=== PATIENT | female | born 1960 | race Caucasian/White ===

== ENCOUNTER 2023-03-17 11:20 | Emergency (ER) | payer OTHER, SELFPAY ==
[2023-03-17] VITALS (12 sets, daily range): BP systolic 177–214; BP diastolic 75–98; PULSE 92–117; RESP 11–18; TEMP 37.1; O2SAT 97–99; BMI 27.4
[2023-03-17 11:53] LABS: Add Manual Diff / Slide Review NO; Basophils Absolute Auto 100 /uL (0-100); Basophils Percent Auto 0.7 % (0-2); Eosinophils Absolute Auto 0 /uL (0-450); Eosinophils Percent Auto 0.2 % (2-4); Hematocrit 39.4 % (36-46); Hemoglobin 13.8 g/dL (12.0-16.0); Lymphocytes Absolute Auto 1400 /uL (1100-4500); Lymphocytes Percent Auto 11.3 % (25-40); Mean Corpuscular Hemoglobin 32.2 PG (26-34); Mean Corpuscular Volume 92.1 fL (80-100); Monocytes Absolute Auto 700 /uL (0-900); Monocytes Percent Auto 5.5 % (3-14); Neutrophils Absolute Auto 10300 /uL (1500-7000); Neutrophils Percent Auto 82.3 % (50-75); Platelet Count 282 X10^3/uL (150-400); Red Blood Cell Count 4.28 X10^6/uL (4.0-5.2); Red Cell Distribution Width 13.5 % (11.6-14.8); White Blood Cell Count 12.6 X10^3/uL (4.5-11.0)
[2023-03-17 12:05] LABS: Alanine Aminotransferase 18 IU/L (<35); Albumin 4.9 g/dL (3.5-5.0); Albumin Globulin Ratio 1.3 (1.0-2.8); Alkaline Phosphatase 100 U/L (38-126); Aspartate Aminotransferase 21 IU/L (14-36); BUN Creatinine Ratio 12.5 (6-22); Bilirubin Total 0.9 mg/dL (0.2-1.3); Blood Urea Nitrogen 6 mg/dL (7-17); Calcium 9.6 mg/dL (8.4-10.2); Carbon Dioxide 26 mmol/L (22-32); Chloride 100 mmol/L (98-107); Estimated Glomerular Filt Rate > 60 mL/min (>60); Globulin 3.7 g/dL (1.7-4.1); Glucose 115 mg/dL (80-110); HEMOLYSIS < 15 (0-50); Lipase 50 U/L (23-300); Potassium 3.5 mmol/L (3.4-5.1); Sodium 136 mmol/L (137-145); Total Protein 8.6 g/dL (6.3-8.2)
[2023-03-17] MEDS: SODIUM CHLORIDE 0.9% 1,000 ML 1000 ML IV (12:32)
--- NOTE | 2023-03-17 13:04 | DI.CT.S_ITS ---
PROCEDURE: CT ABDOMEN PELVIS W CON INDICATIONS: colitis, nephrolithiasis? generalized pelvic pain TECHNIQUE: After the administration of intravenous contrast, axial sections acquired from the lung bases to the pubic symphysis. Coronal and sagittal reformats were performed. For radiation dose reduction, the following was used: automated exposure control, adjustment of mA and/or kV according to patient size. COMPARISON: None. FINDINGS: Image quality: Excellent. Lung bases: Lung bases are clear. Heart: No significant findings. ABDOMEN: Liver: There is a 1.2 cm lateral segment left hepatic lobe hypodensity measuring near fluid attenuation. This likely represents a hepatic cyst. Gallbladder: Unremarkable. Biliary ducts: Unremarkable. Pancreas: Unremarkable. Spleen: Unremarkable. Adrenal Glands: Unremarkable. Kidneys and Ureters: Kidneys are symmetric in size and enhancement, and there is no obstructive uropathy. No perinephric inflammatory changes. Ureters are normal in course and caliber. There is a 2.0 cm mid right renal hypodensity measuring near fluid attenuation. This likely represents a renal cyst. Stomach and Bowel: Stomach and small bowel loops are unremarkable. Scant distal colonic diverticula with acute inflammatory changes involving the distal sigmoid colon. Moderate inflammatory changes and wall thickening. No evidence for perforation or abscess formation. Peritoneum: No abnormal intraperitoneal fluid. No free air. Ventral Wall: There is a fat-containing umbilical hernia without acute inflammation. Abdominal Nodes: No retroperitoneal or mesenteric adenopathy by size criteria. Vessels: Aorta and inferior vena cava are normal in size. PELVIS: Pelvic Organs: Unremarkable. Bladder: Unremarkable. Pelvic Nodes: No enlarged lymph nodes. Miscellaneous: No inguinal hernias are seen. Bones: Unremarkable. IMPRESSION: Distal sigmoid acute diverticulitis/colitis without evidence for perforation or abscess formation. Consider direct visualization after resolution of acute findings to exclude possible underlying neoplastic process. Dictated by: Adrian Magana M.D. on 03/17/2023 at 13:57 Approved by: Adrian Magana M.D. on 03/17/2023 at 14:03
--- NOTE | 2023-03-17 13:05 | ED_ITS ---
HPI - Abdominal Pain General Chief Complaint: Abdominal Pain Stated Complaint: tender Lower ABD pain T-10 Time Seen by Provider: 03/17/23 12:15 Source: patient Mode of arrival: Ambulatory History of Present Illness HPI narrative: This female emergency department of 3 days of worsening generalized pelvic and lower abdominal pain. She denies fever, chills, endorses a history of hypertension and recent UTI with treatment of Macrobid on December 28 states that she ate a scalp on March 06 and had violent illness that night, vomiting and diarrhea, states that she resolved from, but since has dyspepsia, mucousy stools, states they have been loose and not formed, states that she typically does not have formed stool. Denies fever, recent vomiting, denies nausea, denies any blood in her stool, denies hematuria, endorses new lower back pain bilaterally. She denies history of abdominal surgery, denies upper respiratory symptoms. Denies chills. Related Data Previous Rx's Medication Instructions Recorded ciprofloxacin HCl 500 mg tablet 500 mg PO BID 10 days #20 tabs 03/17/23 metronidazole 500 mg tablet 500 mg PO TID 10 days #30 tabs 03/17/23 ondansetron 4 mg disintegrating 4 mg PO Q8H PRN nausea and 03/17/23 tablet vomiting #10 tabs Allergies Allergy/AdvReac Type Severity Reaction Status Date / Time Sulfa (Sulfonamide Allergy Verified 03/17/23 11:30 Antibiotics) Review of Systems Review of Systems ROS Unobtainable: All systems reviewed & are unremarkable except as noted in HPI and below Patient History Social History Smoking Status: Never smoker Smoking Status: Never smoker alcohol intake frequency: holidays/special occasions only Substance Use Type: does not use Exam Narrative Exam Narrative: Reviewed vitals signs and nursing notes. General: Pleasant, sitting upright, in no acute distress, well groomed, afebrile HEENT: symmetrical facial expressions, moist mucous membranes, neck is supple CV: regular rate and rhythm, warm extremities Respiratory: normal work of breathing, without tachypnea or hypoxia. GI: abdomen soft, nondistended, without CVA tenderness bilaterally, generalized lower back pain bilaterally over the soft tissue, tenderness across her lower abdomen and pelvis, no rebound tenderness, negative for pain over her McBurney's point, negative Mosquera's sign MSK: moves all extremities, no weakness, normal tone, ambulatory without deficit Skin: brisk capillary refill, without rash or wound Neuro: clear speech and normal cognition, A&O x3, GCS 15, no focal motor or sensation deficits Initial Vital Signs Initial Vital Signs: Vital Signs Pulse Rate 115 H 03/17/23 11:27 Pulse Oximetry 98 03/17/23 11:27 Course Orders Ordered: ED Orders 03/17/23 11:34 Complete Blood Count AUTO DIFF Stat Comprehensive Metabolic Panel Stat Lipase Stat 03/17/23 11:35 EKG-12 Lead Stat 03/17/23 12:40 Urine Microscopic Stat 03/17/23 13:04 CT abdomen pelvis w con Stat Discontinued Medications Ciprofloxacin (Ciprofloxacin 250 Mg Tablet) 500 mg PO NOW ONE Stop: 03/17/23 14:22 Last Admin: 03/17/23 14:26 Dose: 500 mg Documented By: KATHLEEN Sodium Chloride (Normal Saline 0.9%) 1,000 mls @ 1,000 mls/hr IV BOLUS ONE Stop: 03/17/23 13:23 Last Infusion: 03/17/23 14:26 Dose: 0 mls/hr Documented By: Admin: 03/17/23 12:32 Dose: 1,000 mls/hr Documented By: KATHLEEN Ketorolac Tromethamine (Ketorolac 30 Mg/Ml Vial) 15 mg IV NOW ONE Stop: 03/17/23 12:25 Last Admin: 03/17/23 12:42 Dose: Not Given Documented By: KATHLEEN Metronidazole (Metronidazole 500 Mg Tablet) 500 mg PO NOW ONE Stop: 03/17/23 14:22 Last Admin: 03/17/23 14:26 Dose: 500 mg Documented By: KATHLEEN Ondansetron HCl (Ondansetron 4 Mg/2 Ml Inj) 4 mg IV NOW PRN PRN Reason: Nausea And Vomiting Vital Signs Vital signs: Vital Signs - 8 hr 03/17/23 11:30 03/17/23 11:27 03/17/23 11:28 Temperature 98.7 F Pulse Rate 117 H 115 H 113 H Respiratory Rate 18 Blood Pressure 214/98 H Pulse Oximetry 98 98 98 Oxygen Delivery Method Room Air 03/17/23 11:28 03/17/23 11:30 03/17/23 11:31 Temperature Pulse Rate 112 H Respiratory Rate 18 Blood Pressure 214/98 H 206/88 H Pulse Oximetry 99 Oxygen Delivery Method 03/17/23 11:31 03/17/23 12:00 03/17/23 12:00 Temperature Pulse Rate 114 H 100 H Respiratory Rate 18 Blood Pressure 197/84 H Pulse Oximetry 98 99 Oxygen Delivery Method 03/17/23 12:30 03/17/23 12:30 03/17/23 12:45 Temperature Pulse Rate 102 H 105 H Respiratory Rate 15 Blood Pressure 182/80 H Pulse Oximetry 98 98 Oxygen Delivery Method 03/17/23 12:45 03/17/23 13:00 03/17/23 13:00 Temperature Pulse Rate 100 H Respiratory Rate 15 Blood Pressure 192/82 H 177/77 H Pulse Oximetry 97 Oxygen Delivery Method 03/17/23 13:30 03/17/23 14:00 03/17/23 14:30 Temperature Pulse Rate 94 H 92 H 97 H Respiratory Rate 15 14 11 L Blood Pressure Pulse Oximetry 97 97 97 Oxygen Delivery Method 03/17/23 14:42 Temperature Pulse Rate 102 H Respiratory Rate Blood Pressure 177/75 H Pulse Oximetry 97 Oxygen Delivery Method Room Air MDM - Abdominal Pain Lab Data 03/17/23 11:34 03/17/23 11:34 Labs: Lab Results 03/17/23 03/17/23 03/17/23 Range/Units 11:34 11:34 12:40 WBC 12.6 H (4.5-11.0) X10^3/uL RBC 4.28 (4.0-5.2) X10^6/uL Hgb 13.8 (12.0-16.0) g/dL Hct 39.4 (36-46) % MCV 92.1 (80-100) fL MCH 32.2 (26-34) PG MCHC 35.0 (30-36) % RDW 13.5 (11.6-14.8) % Plt Count 282 (150-400) X10^3/uL Neut % (Auto) 82.3 H (50-75) % Lymph % (Auto) 11.3 L (25-40) % [place] % (Auto) 5.5 (3-14) % Eos % (Auto) 0.2 L (2-4) % Baso % (Auto) 0.7 (0-2) % Neut # (Auto) 26055 H (6002-7105) /uL Lymph # (Auto) 1400 (9686-6744) /uL [place] # (Auto) 700 (0-900) /uL Eos # (Auto) 0 (0-450) /uL Baso # (Auto) 100 (0-100) /uL Sodium 136 L (137-145) mmol/L Potassium 3.5 (3.4-5.1) mmol/L Chloride 100 (98-107) mmol/L Carbon Dioxide 26 (22-32) mmol/L BUN 6 L (7-17) mg/dL Creatinine 0.48 L (0.52-1.04) mg/dL Estimated GFR > 60 (>60) mL/min BUN/Creatinine Ratio 12.5 (6-22) Glucose 115 H (80-110) mg/dL Calcium 9.6 (8.4-10.2) mg/dL Total Bilirubin 0.9 (0.2-1.3) mg/dL AST 21 (14-36) IU/L ALT 18 (<35) IU/L Alkaline Phosphatase 100 (38-126) U/L Total Protein 8.6 H (6.3-8.2) g/dL Albumin 4.9 (3.5-5.0) g/dL Globulin 3.7 (1.7-4.1) g/dL Albumin/Globulin Ratio 1.3 (1.0-2.8) Lipase 50 (23-300) U/L Urine RBC 0-1/hpf (0-5/HPF) Urine WBC 0-1/hpf (0-5/HPF) Ur Squamous Epith Cells 1-5 /hpf (0-5/HPF) Urine Bacteria None seen (None) Ur Culture Indicated? Cult not indicated Point of care testing: Urine Dip Bedside Urine Glucose Negative Bedside Urine Bilirubin - Negative Bedside Urine Ketone + 15 Urine Specific [place] 1.010 Bedside Urine Occult Blood + Bedside Urine pH 7.0 Bedside Urine Protein - Negative Bedside Urine Urobilinogen - Negative Bedside Urine Nitrite - Negative Bedside Urine Leukocytes - Negative Esterase Imaging Data CT scan - abdomen/pelvis: Radiologist's Impression: PROCEDURE:? CT ABDOMEN PELVIS W CON ? INDICATIONS:? colitis, nephrolithiasis? generalized pelvic pain ? TECHNIQUE:? After the administration of intravenous contrast, axial sections acquired from the lung bases to the pubic symphysis.? Coronal and sagittal reformats were performed.? For radiation dose reduction, the following was used:? automated exposure control, adjustment of mA and/or kV according to patient size.? ? COMPARISON:? None. ? FINDINGS: ? Image quality:? Excellent.? ? Lung bases:? Lung bases are clear. ? Heart:? No significant findings. ? ABDOMEN: Liver:? There is a 1.2 cm lateral segment left hepatic lobe hypodensity measuring near fluid attenuation.? This likely represents a hepatic cyst.? ? Gallbladder:? Unremarkable.? ? Biliary ducts:? Unremarkable.? ? Pancreas:? Unremarkable.? ? Spleen:? Unremarkable.? ? Adrenal Glands:? Unremarkable.? ? Kidneys and Ureters:? Kidneys are symmetric in size and enhancement, and there is no obstructive uropathy.? No perinephric inflammatory changes. Ureters are normal in course and caliber.? There is a 2.0 cm mid right renal hypodensity measuring near fluid attenuation.? This likely represents a renal cyst.? ? ? Stomach and Bowel:? Stomach and small bowel loops are unremarkable.? Scant distal colonic diverticula with acute inflammatory changes involving the distal sigmoid colon.? Moderate inflammatory changes and wall thickening.? No evidence for perforation or abs cess formation. Peritoneum:? No abnormal intraperitoneal fluid.? No free air.? ? Ventral Wall: ? There is a fat-containing umbilical hernia without acute inflammation.? Abdominal Nodes:? No retroperitoneal or mesenteric adenopathy by size criteria.? Vessels:? Aorta and inferior vena cava are normal in size.? ? PELVIS: Pelvic Organs:? Unremarkable.? ? Bladder:? Unremarkable.? ? Pelvic Nodes: No enlarged lymph nodes.? Miscellaneous: No inguinal hernias are seen. ? ? ? Bones:? Unremarkable.? ? ? IMPRESSION:? Distal sigmoid acute diverticulitis/colitis without evidence for perforation or abscess formation.? Consider direct visualization after resolution of acute findings to exclude possible underlying neoplastic process. ? Dictated by: Adrian Magana M.D. on 03/17/2023 at 13:57 ? ? Approved by: Adrian Magana M.D. on 03/17/2023 at 14:03 ? ECG Data Interpretation: EKG independently reviewed by myself at 1200 reveals sinus tachycardia at [110] bpm with regular axis and intervals. No STEMI, ST segment changes, arrhythmia, or acute ischemic changes. MDM Narrative Medical decision making narrative: Chief Complaint: Generalized lower abdominal pain Independent historian: Patient Multiple etiologies for patient's symptoms considered including, but not limited to: Infectious colitis, Salmonella, urinary tract infection, nephrolithiasis, pyelonephritis, diverticulitis, perforated viscus, constipation, mesenteric ischemia, acute viral process, gastroenteritis, dehydration I have independently reviewed the patient's vital signs and nursing notes as well as prior records if available. Pertinent records include: No prior records for review My EKG interpretation: Sinus tachycardia without acute ST changes or signs of ischemia My interpretation of lab studies: Mild leukocytosis of 12.6 with a left shift, no significant electrolyte abnormalities, no elevation of liver enzymes, urine dip without leukocytes or nitrites but positive for blood, urine microscopy is aseptic without contamination Stool culture pending My interpretation of imaging: CT abdomen pelvis shows inflammation of the sigmoid colon consistent with diverticulitis Course of care: Patient was treated with 1 L normal saline, ordered and Toradol patient declined the Toradol. CT abdomen pelvis ordered for abdominal tenderness after patient's blood work came back showing elevated WBC with left shift. Patient's exam is significant for lower abdominal tenderness to palpation. CT is positive for sigmoid colon diverticulitis without fluid collection, abscess, or other acute process. Patient was treated with Cipro and Flagyl, 1 L of IV saline and appears to be feeling much better. She declined the Toradol which given for inflammation however her heart rate came down while she was here. I have a low suspicious for bacteremia she is afebrile, without vomiting or chills. CT without perforated viscus. She understands to follow clear liquid diet for the next few days, advance as tolerated, return to the emergency department for new or worsening symptoms. She was given contact information for surgeons for follow-up when well. she is not had any blood in her stool Social considerations that may affect disposition: none Questions are addressed and there is agreement with the plan and for follow-up. I consulted with the ED attending physician Dr. Villatoro as needed for higher level of care considerations and they were available for discussion and r ecommendations regarding plan of care and diagnostic testing. Patient is appropriate for outpatient management. Discharge Plan Departure Patient Disposition: Home Clinical Impression: Diverticulitis Abdominal pain Qualifiers: Abdominal location: lower abdomen, unspecified Qualified Code(s): R10.30 - Lower abdominal pain, unspecified Instructions: Diverticulitis Activity Restrictions/Additional Instructions: *You have been diagnosed with diverticulitis which is diverticulosis in your lower/sigmoid colon. There is no evidence of perforation or abscess. Please finish his antibiotics please stay hydrated, Zofran as needed for nausea, follow-up clear liquid diet for the next 2 days and slowly add in well tolerated that are not greasy, gas to virus. I hope you feel better soon, it was a pleasure to meet you and follow-up with your primary care provider after this. If you have any worsening, please come back to the emergency department. *What to do: *Please continue to take your regular medications as directed. [ x] New medication prescriptions sent to your pharmacy: [[facility]] [ ] New medication written as a paper prescription [ ] No new medications given *Please call and schedule follow up with your primary care provider in 2-3 days, at least for an update. Let them know you were seen in the Emergency Department for the above problem. We will electronically transmit a record of today's note if your PCP or specialist is in our system. *If you do not have a primary care provider please contact [phone] to establish care with one of the [facility] primary care providers. *Return to the Emergency Department for worsening symptoms, inability to keep liquids down, fever greater than 101F, chills, or other concerning symptom. Prescriptions: New metronidazole 500 mg tablet 500 mg PO TID 10 Days Qty: 30 0RF ondansetron 4 mg tablet,disintegrating 4 mg PO Q8H PRN (Reason: nausea and vomiting) Qty: 10 0RF ciprofloxacin HCl 500 mg tablet 500 mg PO BID 10 Days Qty: 20 0RF Referrals: [facility] [Provider Group] Miscellaneous,Doctor, [Primary Care Provider] - Stand Alone Forms: Patient Portal/API
[2023-03-17 13:21] LABS: Bacteria Urine None Seen; Culture Indicated Urine Cult Not Indicated; RBC Urine 0-1/HPF (0-5/HPF); Squamous Epithelial Cell Urine 1-5 /HPF (0-5/HPF); WBC Urine 0-1/HPF (0-5/HPF)
[2023-03-17] MEDS: CIPROFLOXACIN 250 MG TABLET 500 MG PO (14:26)
[2023-03-17] MEDS: metroNIDAZOLE 500 MG TABLET PO (14:26)
== END 2023-03-17 14:42 | disposition home or self-care (01) ==
PROVIDERS: Emergency Medicine; Emergency Provider Nurse Practitioner Critical Care Medicine
DX: K57.92 Diverticulitis of intestine, part unspecified, without perforation or abscess without bleeding (principal); R10.30 Lower abdominal pain, unspecified; R00.0 Tachycardia, unspecified
CPT/HCPCS: 36415; 74177; 80053; 81003; 81015; 83690; 85025; 93005; 96360; 96361; 99284; J1885; Q9967